=== PATIENT | male | born 1975 | race Caucasian/White ===

== ENCOUNTER 2016-12-24 12:54 | Emergency (ER) | payer OTHER ==
[~2016-12-24] VITALS: Ht 188 cm; Wt 97.5 kg
[2016-12-24 13:07] VITALS: BP 144/91
--- NOTE | 2016-12-24 13:32 | PHYS DOC ---
Past Medical History Past Medical History: Asthma, Other Additional Past Medical Histor: gout Past Surgical History: No Surgical History Alcohol Use: None Drug Use: None Adult General Chief Complaint Chief Complaint: ANIMAL BITE [facility] HPI Patient is a 41 year old [male presents the emergency Department today with complaint of multiple dog bites from a neighbor's dog that occurred within an hour prior to arrival. Patient states that the dog is a [place] Bray of his neighbors. He states that he has been around the animal for approximately 2 months and his tried to make contact with the dog without any previous episodes of biting or scratching. Patient states that he stood up quickly and this is probably what startled the dog. Patient denies getting hit in the face or the neck. He does not know the immunization status of the dog. He reports that his last tetanus shot is greater than 5 years ago. He denies any additional injuries or concerns at this time. Review of Systems Review of Systems Constitutional: Denies fever or chills [] Eyes: Denies change in visual acuity, redness, or eye pain [] HENT: Denies nasal congestion or sore throat [] Respiratory: Denies cough or shortness of breath [] Cardiovascular: No additional information not addressed in HPI [] GI: Denies abdominal pain, nausea, vomiting, bloody stools or diarrhea [] : Denies dysuria or hematuria [] Musculoskeletal: Denies back pain or joint pain [] Integument: Denies rash or skin lesions [] Neurologic: Denies headache, focal weakness or sensory changes [] Endocrine: Denies polyuria or polydipsia [] Current Medications Current Medications Current Medications Medications (Trade) Dose Ordered Sig/Katerina Start Time Stop Time Status Last Admin Dose Admin Diphtheria/ Tetanus/Acell Pertussis (Boostrix) 0.5 ml ONCE ONCE 12/24/16 13:45 12/24/16 13:46 DC 12/24/16 14:06 0.5 ML Allergies Allergies Allergies Coded Allergies Type Severity Reaction Last Updated Verified erythromycin base Allergy Intermediate Hives 12/24/16 Yes Physical Exam Physical Exam Constitutional: Well developed, well nourished, no acute distress, non-toxic appearance. [] HENT: Normocephalic, atraumatic, bilateral external ears normal, oropharynx moist, no oral exudates, nose normal. [] Eyes: PERRLA, EOMI, conjunctiva normal, no discharge. [] Neck: Normal range of motion, no tenderness, supple, no stridor. [] Cardiovascular:Heart rate regular rhythm, no murmur [] Lungs & Thorax: Bilateral breath sounds clear to auscultation [] Abdomen: Bowel sounds normal, soft, no tenderness, no masses, no pulsatile masses. [] Skin: Warm, dry, no erythema, no rash. [] Back: No tenderness, no CVA tenderness. [] Extremities: Superficial bite abrasion to the distal right forearm. Approximate 3.5 cm bite laceration to the ulnar aspect of left distal forearm/wrist. This bite does extend into the subcutaneous fat. Flexor extensor mechanisms are intact to the hand and fingers. There is no active bleeding. Left hand is neurovascularly intact with capillary refill less than 2 seconds. Left knee with 2 puncture wounds overlying the patella. There is no fusiform swelling of the knee. There is no high riding patella. Extensor mechanism is intact. Neurologic: Alert and oriented X 3, normal motor function, normal sensory function, no focal deficits noted. [] Psychologic: Affect normal, judgement normal, mood normal. [] Current Patient Data Vital Signs Vital Signs Date Time Temp Pulse Resp B/P Pulse Ox O2 Delivery O2 Flow Rate FiO2 12/24/16 13:07 97.9 80 16 97 Room Air 97.9 EKG EKG [] Radiology/Procedures Radiology/Procedures 3 views of patient's left wrist were performed with adequate technique. There is no evidence of bony injury or retained subcutaneous foreign body. Procedure #1:2.5 cm laceration to the ulnar aspect of left distal forearm/wrist was anesthetized with buffered 1% lidocaine. Wound was cleansed with Betadine solution and rinsed with copious amounts of saline. Wound was explored for foreign bodies. No foreign bodies were found. Wound margins were loosely approximated utilizing 4-0 Prolene in a simple interrupted fashion of a single- layer closure for total of 5 stitches. Patient tolerated the procedure well. Procedure note #2:1 cm puncture laceration to left knee was anesthetized with buffered 1% lidocaine. Wound was cleansed with Betadine solution and rinsed with copious amounts of saline. Wound was explored for foreign bodies. No foreign bodies were found. Wound margins were loosely approximated utilizing 4- 0 Prolene in a simple interrupted fashion of a single-layer closure for total of one stitch. Patient tolerated the procedure well. Course & Med Decision Making Course & Med Decision Making Animal control presents to the emergency Department today to take statement and information as to the incident. Katherine Disclaimer Katherine Disclaimer This electronic medical record was generated, in whole or in part, using a voice recognition dictation system. Departure Departure Impression: Primary Impression: Dog bite Additional Impression: Laceration Disposition: HOME, SELF-CARE Condition: IMPROVED Referrals: UNKNOWN PCP NAME (PCP) Patient Instructions: Animal Bite, [id number], Diphtheria Toxoid; Tetanus Toxoid Adsorbed, DT, Td, Laceration Care, Adult, [id number] Additional Instructions: 1. Stitches need to be removed in 7-10 days. Keep the area clean and dry. You can apply a topical antibiotic ointment twice a day. 2. The risk of infection is high after a mammal bite. Be sure to take the antibiotic as prescribed. 3. Review the discharge instructions provided for self-care and reasons to return to the emergency department. 4. Contact your primary care doctor's office Monday to schedule follow-up appointment for wound check. Scripts Amoxicillin/Potassium Clav (Augmentin 875-125 Tablet)1 Each Tablet1 Tab PO BID # 14 TAB Prov:YADIEL FREIRE 12/24/16 Problem Qualifiers YADIEL FREIRE Dec 24, 2016 13:32
[2016-12-24] MEDS ORDERED: DIPHTH,PERTUSS(ACELL),TET TOX 0.5 ML DISP.SYRIN. VAX IM ONE (13:45)
[2016-12-24] MEDS ORDERED: AMOX1TAB61 PO (14:37)
--- NOTE | 2016-12-24 15:14 | RAD ---
WRIST 3V LEFT Clinical Indication: dog bite 6 Comparison: None. Technique: Frontal, oblique and lateral views of the left wrist are obtained. Findings: No acute fracture or dislocation is seen. Carpal bones remain aligned. Surrounding soft tissues demonstrate no focal abnormality, without a radiopaque foreign body seen. IMPRESSION: No acute osseous injury seen.
== END 2016-12-24 14:44 | disposition home or self-care (01) ==
LOC: ER 12:54
DX: S51.851A Open bite of right forearm, initial encounter (principal); S81.032A Puncture wound without foreign body, left knee, initial encounter; J45.909 Unspecified asthma, uncomplicated; M10.9 Gout, unspecified; Z88.1 Allergy status to other antibiotic agents; W54.0XXA Bitten by dog, initial encounter; Y93.89 Activity, other specified; Y92.89 Other specified places as the place of occurrence of the external cause; Y99.8 Other external cause status
CPT/HCPCS: 12002; 73110; 90471; 90715; 99284-25

== ENCOUNTER 2018-01-15 01:46 | Emergency (ER) | payer OTHER ==
[2018-01-15] MEDS: ONDANSETRON PF 4 MG/2 ML VIAL. IV (03:00)
[2018-01-15] MEDS: IV NORMAL SALINE 500ML BAG 500 ML IV (03:00)
[2018-01-15 03:52] LABS: ANION GAP 10 (6-14); BLOOD UREA NITROGEN 16 mg/dL (8-26); BUN/CREATININE RATIO 16 (6-20); CALCIUM 7.9 mg/dL (8.5-10.1); CARBON DIOXIDE 26 mmol/L (21-32); CHLORIDE 107 mmol/L (98-107); GFR 81.6; GLUCOSE 150 mg/dL (70-99); POTASSIUM 4.3 mmol/L (3.5-5.1); SODIUM 143 mmol/L (136-145)
[2018-01-15 03:56] LABS: ALBUMIN 3.7 g/dL (3.4-5.0); ALBUMIN/GLOBULIN RATIO 1.1 (1.0-1.7); ALK PHOS 67 U/L (46-116); ALT (SGPT) 56 U/L (16-63); AST (SGOT) 28 U/L (15-37); LIPASE 111 U/L (73-393); TOTAL BILIRUBIN 0.4 mg/dL (0.2-1.0); TOTAL PROTEIN 7.1 g/dL (6.4-8.2)
[2018-01-15 04:03] LABS: ADD MAN DIFF? NO
[2018-01-15 04:04] LABS: BASO % 1 % (0-3); EOS # 0.1 x10^3/uL (0.0-0.7); EOS % 1 % (0-3); HEMATOCRIT 38.8 % (39.0-53.0); HEMOGLOBIN 13.6 g/dL (13.0-17.5); LYMPH # 1.2 x10^3/uL (1.0-4.8); LYMPH % 17 % (24-48); MEAN CORPUSCULAR HEMOGLOBIN 31 pg (25-35); MEAN CORPUSCULAR HGB CONC 35 g/dL (31-37); MEAN CORPUSCULAR VOLUME 90 fL (79-100); MONO # 0.3 x10^3/uL (0.0-1.1); MONO % 4 % (0-9); NEUT # 5.4 x10^3uL (1.8-7.7); NEUT % 78 % (31-73); PLATELET COUNT 155 x10^3/uL (140-400); RED BLOOD COUNT 4.32 x10^6/uL (4.30-5.70); RED CELL DISTRIBUTION WIDTH 13.3 % (11.5-14.5); WHITE BLOOD COUNT 6.9 x10^3/uL (4.0-11.0)
== END 2018-01-15 04:40 | disposition home or self-care (01) ==
LOC: ER 01:46
DX: F10.129 Alcohol abuse with intoxication, unspecified (principal); R11.10 Vomiting, unspecified; J45.909 Unspecified asthma, uncomplicated; M10.9 Gout, unspecified; Z88.1 Allergy status to other antibiotic agents
CPT/HCPCS: 36415; 80053; 83690; 85025; 96361; 96374; 99284-25; J2405; J7040